=== PATIENT | female | born 1965 | race Caucasian/White ===

== ENCOUNTER 2022-10-06 19:54 | Emergency (ER) | payer BC ==
[~2022-10-06 19:54] MED LIST: Iopamidol 370 76% 125 ML VIAL FS ONE
[2022-10-06] MEDS ORDERED: Sodium Chloride 0.9% 100 ML ONE (20:46)
[2022-10-06] MEDS ORDERED: Albuterol Sulfate 2.5 mg/3 ml Neb ONE (20:46)
[2022-10-06] MEDS ORDERED: Ondansetron PF 4 MG/2 ML Vial ONE (20:46)
[2022-10-06] MEDS ORDERED: Dexamethasone 10 MG/ML VIAL ONE (20:46)
[2022-10-06] MEDS ORDERED: cefTRIAXone\\ROCEPHIN 2 GM VIAL ONE (20:46)
[2022-10-06] MEDS ORDERED: Sodium Chloride 0.9% 2,000 ML ONE (20:46)
[2022-10-06 21:00] LABS: #Basophils 0.1 thou/uL (0.0-0.2); #Eosinphils 0.1 thou/uL (0.0-0.7); #Lymphocytes 1.5 thou/uL (1.20-3.40); #Monocytes 0.5 thou/uL (0.11-0.59); #Neutrophils 6.4 thou/uL (1.40-6.50); %Basophils 0.7 % (0.0-1.0); %Eosinophils 1.5 % (0.0-10.0); %Lymphocytes 17.2 % (21.0-51.0); %Monocytes 5.3 % (0.0-10.0); %Neutrophils 75.3 % (42.0-75.0); Hemoglobin 13.3 g/dL (12.0-16.0); Mean Corpuscular HGB CONC 35.4 g/dL (32.0-36.0); Mean Corpuscular Hemoglobin 32.3 pg (27.0-31.0); Mean Platelet Volume 8.5 fL (7.4-10.4); Platelet Count 220 10x3/uL (130-400); RBC Distribution Width 11.6 % (11.5-14.5); Red Blood Cell (RBC) Count 4.13 mill/uL (4.20-5.40); White Blood Cell (WBC) Count 8.5 10x3/uL (4.8-10.8)
[2022-10-06 21:18] LABS: ALT (SGPT) 21 U/L (8-55); AST (SGOT) 19 U/L (5-34); Albumin 3.7 g/dL (3.5-5.0); Alkaline Phosphatase 66 U/L (40-110); Anion Gap 16 mmol/L (10-20); BUN (Urea Nitrogen) 12 mg/dL (9.8-20.1); Bilirubin, Total 0.2 mg/dL (0.2-1.2); Calc. Creatinine Clearance 0 mL/min (70-130); Calcium 8.7 mg/dL (7.8-10.44); Carbon Dioxide 20 mmol/L (22-29); Chloride 110 mmol/L (98-107); Estimated GFR 80; Globulin 2.6 g/dL (2.4-3.5); Glucose 197 mg/dL (70-105); Potassium 3.2 mmol/L (3.5-5.1); Protein, Total 6.3 g/dL (6.0-8.3); Sodium 143 mmol/L (136-145)
[2022-10-06] MEDS ORDERED: Albuterol Sulfate 2.5 mg/0.5 ml Neb ONE (21:46)
[2022-10-06 22:06] LABS: SARS-CoV-2 NAA Rapid Test Not Detected (NotDetected)
[2022-10-07] MEDS ORDERED: Potassium Chloride 20 MEQ TAB ONE (00:12)
[2022-10-07] MEDS ORDERED: Magnesium 2 GM/50 ML BAG (IN WATER) ONE (00:12)
[2022-10-07 00:40] LABS: Magnesium 1.6 mg/dL (1.6-2.6)
== END 2022-10-07 10:10 | disposition home or self-care (01) ==
LOC: MADERS 19:54
DX: J45.901 Unspecified asthma with (acute) exacerbation (principal); R00.0 Tachycardia, unspecified; Z20.822 Contact with and (suspected) exposure to COVID-19; Z79.899 Other long term (current) drug therapy
CPT/HCPCS: 36415; 71045; 71275; 80053; 83735; 84484; 85025; 85379; 87040; 87804; 96365; 96375; J0696; J1100; J2405; J3475; J3490; J7050; J7611; J7620; Q9967; U0002